=== PATIENT | female | born 1955 | race Caucasian/White ===

== ENCOUNTER 2020-03-21 21:00 | Emergency (ER) | payer OTHER, MEDICAID ==
[~2020-03-21] VITALS: Ht 182.9 cm; Wt 72.6 kg
[2020-03-22 00:17] VITALS: BP 158/86
[2020-03-22] MEDS ORDERED: KETOROLAC TROMETH 60MG/2ML VIAL IM ONE (00:30)
== END 2020-03-22 01:13 | disposition home or self-care (01) ==
LOC: ER 21:00
DX: S63.91XA Sprain of unspecified part of right wrist and hand, initial encounter (principal); M19.041 Primary osteoarthritis, right hand; W01.0XXA Fall on same level from slipping, tripping and stumbling without subsequent striking against object, initial encounter; Y93.89 Activity, other specified; Y92.89 Other specified places as the place of occurrence of the external cause; Y99.8 Other external cause status
CPT/HCPCS: 73130; 96372; 99283; J1885

== ENCOUNTER 2023-05-09 10:17 | Day surgery (SDC) | payer MEDICAID, MEDICARE ==
[2023-05-08 15:25] LABS: Urine Bacteria NONE SEEN /hpf (None Seen); Urine Blood Negative /uL (Negative); Urine Clarity Clear (Clear); Urine Color Yellow (Yellow); Urine Protein, UAD Negative (Negative); Urine WBC 13 /hpf (0 - 5); Urine pH 5.5 (5.0-8.0)
[2023-05-08 15:28] LABS: Basophils # (auto) 0.1 10 ^3/uL (0-0.2); Basophils % (auto) 0.7 % (0.0-2.0); Eosinophils # (auto) 0.2 10 ^3/uL (0-0.8); Eosinophils % (auto) 2.5 % (0.0-7.0); Hematocrit 41.4 % (36.0-46.0); Hemoglobin 13.8 g/dL (12.2-16.2); Lymphocytes # (auto) 3.3 10 ^3/uL (0.4-5.4); Mean Corpuscular Hemoglobin 32.4 pg (28.0-32.0); Mean Corpuscular Hgb Conc. 33.4 g/dL (32.0-36.0); Mean Corpuscular Volume 96.9 fL (80.0-100.0); Monocytes # (auto) 0.6 10 ^3/uL (0-1.3); Neutrophils # (auto) 3.9 10 ^3/uL (1.6-8.6); Neutrophils % (auto) 47.8 % (37.0-80.0); Nucleated Red Blood Cells % 0.3 %; Red Blood Cells 4.27 10^6/uL (4.0-5.20); Red Cell Distribution Width 13.8 % (11.8-14.3); White Blood Cell 8.1 10^3/uL (4.4-10.8)
[2023-05-08 15:38] LABS: INR 1.09 (0.9-1.15); Partial Thromboplastin Time 23.9 SEC (24.5-34.5); Prothrombin Time 11.4 sec (9.3-11.8)
[2023-05-08 16:55] LABS: Alanine Aminotransferase 40 U/L (7-40); Albumin 4.3 g/dL (3.2-4.8); Alkaline Phosphatase 110 U/L (46-116); Anion Gap 8 (5-15); Aspartate Aminotransferase 64 U/L (13-40); BUN/Creatinine Ratio 12.5 (10.0-20.0); Blood Urea Nitrogen 10 mg/dL (9-23); Calcium 9.8 mg/dL (8.7-10.4); Carbon Dioxide 25 mmol/L (20-30); Chloride 106 mmol/L (98-107); Glucose 94 mg/dL (74-106); Potassium 4.6 mmol/L (3.5-5.1); Sodium 139 mmol/L (136-145)
[2023-05-08 16:56] LABS: Total Protein 7.8 g/dL (5.7-8.2)
[2023-05-08 16:57] LABS: Bilirubin, Total 0.7 mg/dL (0.2-1.0)
[~2023-05-09] VITALS: Ht 177.8 cm; Wt 63.5 kg
[2023-05-09] MEDS ORDERED: ONDANSETRON HCL 4 MG/2 ML VIAL ONE (11:00)
[2023-05-09] MEDS ORDERED: PROPOFOL 10 MG/ML 20 ML IV ONE (11:00)
[2023-05-09] MEDS ORDERED: ePHEDrine SULFATE 50 MG/ML AMP ONE (11:00)
[2023-05-09] MEDS ORDERED: GLYCOPYRROLATE 0.2 MG/ML 1ML VIAL ONE (11:00)
[2023-05-09] MEDS ORDERED: MIDAZOLAM HCL 2MG/2ML 2ml VIAL (1mg/ml) ONE (11:00)
[2023-05-09] MEDS ORDERED: BUPIVACAINE HCL 0.25% P/F 10 ML VIAL ONE ×2 (12:16→13:04)
[2023-05-09] MEDS ORDERED: TRANEXAMIC ACID 20 ML ONE (12:28)
[2023-05-09] MEDS ORDERED: fentaNYL CITRATE 100 MCG/2 ML VL ONE (12:48)
[2023-05-09] MEDS ORDERED: LIDOCAINE 2% (LOCAL ANESTH.) PF 5ml SDV ONE (12:48)
[2023-05-09] MEDS ORDERED: HYDROmorphone HCL 2 MG/ML VL/or syr ONE (12:48)
[2023-05-09] MEDS ORDERED: KETOROLAC TROMETH 30 MG/ML 1ML VIAL ONE (12:48)
[2023-05-09] MEDS ORDERED: DexAMETHasone SOD PHOS 10MG/1ML VIAL INJ ONE (12:48)
[2023-05-09] MEDS ORDERED: MEPERIDINE HCL (25 MG/ML) 1ML VIAL ONE (13:33)
[2023-05-09 14:21] VITALS: TEMP 97.2; O2SAT 95
[2023-05-09] MEDS ORDERED: ONDANSETRON HCL 4 MG/2 ML VIAL IV PRN (14:30)
[2023-05-09] MEDS: HYDROmorphone HCL 2 MG/ML VL/or syr IV PRN ×2 (14:48→15:07)
[2023-05-09 15:27] VITALS: BP 151/75; PULSE 69; RESP 12; O2SAT 94
[2023-05-09] MEDS ORDERED: CEPHALEXIN 250 MG CAP PO SCH (18:00)
== END 2023-05-09 15:28 | disposition home or self-care (01) ==
LOC: SUR 10:17
PROVIDERS: ATTEND Orthopaedic Surgery
DX: S82.041A Displaced comminuted fracture of right patella, initial encounter for closed fracture (principal); W01.0XXA Fall on same level from slipping, tripping and stumbling without subsequent striking against object, initial encounter; Y93.89 Activity, other specified; Y92.89 Other specified places as the place of occurrence of the external cause; Y99.8 Other external cause status; Z87.891 Personal history of nicotine dependence
CPT/HCPCS: 27524; 36415; 80053; 81001; 85025; 85610; 85730; J1100; J1170; J1885; J2001; J2175; J2250; J2405; J2704; J3010; J3490